=== PATIENT | male | born 1955 | race Caucasian/White ===

== ENCOUNTER 2019-11-23 07:50 | Emergency (ER) | payer MEDICARE ==
[~2019-11-23] VITALS: Ht 172.7 cm; Wt 71.5 kg
[2019-11-23 07:52] VITALS: BP 170/114
[2019-11-23] MEDS ORDERED: CARBAMIDE PEROXIDE EAR DROPS 6.5%, 15ML ONE (08:11)
--- NOTE | 2019-11-23 08:18 | NUR ---
PT FOUND IN RUMMAGING THROUGH CABINETS, PT WITH LARGE SUITCASE ON ARRIVAL, EXPLAINED TO PT HE IS NOT ALLOWED TO GO THROUGH OUR SUPPLIES IN , PT BACK TO [facility] ADMIN
[2019-11-23] MEDS ORDERED: CARBAMIDE PEROXIDE EAR DROPS 6.5%, 15ML EACH EAR ONE (08:30)
== END 2019-11-23 09:14 | disposition home or self-care (01) ==
LOC: ED 08:22
DX: H61.23 Impacted cerumen, bilateral (principal)
CPT/HCPCS: 99282

== ENCOUNTER 2019-11-24 07:43 | Emergency (ER) | payer MEDICARE ==
[2019-11-24 07:48] VITALS: BP 171/104
--- NOTE | 2019-11-24 07:58 | NUR ---
PT BECAME VERBALLY AGGRESSIVE, CALLED RN "STUPID BITCH". PT EXITED LOBBY.
== END 2019-11-24 08:00 ==
LOC: ED 07:55
DX: N23 Unspecified renal colic (principal); Z53.21 Procedure and treatment not carried out due to patient leaving prior to being seen by health care provider